=== PATIENT | female | born 1995 | race Caucasian/White ===

== ENCOUNTER 2016-10-28 16:32 | Inpatient (IN) | payer SELFPAY ==
[~2016-10-28] VITALS: Ht 165.1 cm; Wt 51.4 kg
[2016-10-28] MEDS ORDERED: NS IV 1000 ML 1,000 ML IV ONE (16:46)
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
[2016-10-28 16:58] LABS: BASOPHILS % (AUTO) 0 % (0-10); EOSINOPHILS # (AUTO) 0.1 10^3/uL (0.0-0.3); EOSINOPHILS % (AUTO) 1 % (0-10); LYMPHOCYTES # (AUTO) 2.6 X 10^3 (1.0-4.0); LYMPHOCYTES % (AUTO) 26 % (12-44); MEAN CORPUSCULAR HEMOGLOBIN 31 PG (25-34); MEAN CORPUSCULAR HGB CONC 34 G/DL (32-36); MEAN CORPUSCULAR VOLUME 90 FL (80-99); MEAN PLATELET VOLUME 9.5 FL (7.4-10.4); MONOCYTES # (AUTO) 1.1 X 10^3 (0.0-1.0); MONOCYTES % (AUTO) 11 % (0-12); NEUTROPHILS # (AUTO) 6.1 X 10^3 (1.8-7.8); NEUTROPHILS % (AUTO) 62 % (42-75); PLATELET COUNT 332 10^3/uL (130-400); RED BLOOD COUNT 4.33 10^6/uL (4.35-5.85); RED CELL DISTRIBUTION WIDTH 12.3 % (10.0-14.5); WHITE BLOOD COUNT 9.9 10^3/uL (4.3-11.0)
[2016-10-28 17:11] LABS: ALANINE AMINOTRANSFERASE 12 U/L (0-55); ALBUMIN 4.3 GM/DL (3.2-4.5); ALCOHOL < 10 MG/DL (<10); ANION GAP 11 MMOL/L (5-14); ASPARTATE AMINO TRANSFERASE 17 U/L (5-34); BILIRUBIN,TOTAL 0.6 MG/DL (0.1-1.0); BLOOD UREA NITROGEN 9 MG/DL (7-18); BUN/CREATININE RATIO 12; CALCIUM 10.3 MG/DL (8.5-10.1); CARBON DIOXIDE 24 MMOL/L (21-32); CHLORIDE 107 MMOL/L (98-107); CREATININE SERUM 0.78 MG/DL (0.60-1.30); GFR ESTIMATED > 60; GLUCOSE 96 MG/DL (70-105); MAGNESIUM 2.2 MG/DL (1.8-2.4); PHOSPHORUS 3.4 MG/DL (2.3-4.7); POTASSIUM 3.9 MMOL/L (3.6-5.0); SODIUM 142 MMOL/L (135-145); TOTAL PROTEIN 7.7 GM/DL (6.4-8.2)
[2016-10-28 17:18] LABS: TROPONIN I < 0.30 NG/ML (<0.30)
[2016-10-28 17:19] LABS: ACETAMINOPHEN < 10 UG/ML (10-30); VALPROIC ACID < 2.0 UG/ML (50.0-100.0)
[2016-10-28] MEDS ORDERED: diphenhydrAMINE 50 MG/ML INJ (BENADRYL) IVP ONE (17:30)
--- NOTE | 2016-10-28 17:35 | Diagnostic Imaging Report ---
INDICATION: Altered mental status and overdose. EXAM: Single view of the chest is obtained. COMPARISON: No previous study is available for comparison at this time. FINDINGS: Heart size and pulmonary vasculature are within normal limits, and the lungs are clear, bilaterally. IMPRESSION: Unremarkable chest. Dictated by: Dictated on workstation # [id number]
[2016-10-28 17:48] LABS: BILIRUBIN,URINE NEGATIVE (NEGATIVE); KETONES,URINE NEGATIVE (NEGATIVE); LEUKOCYTE ESTERASE ,URINE 2+ (NEGATIVE); NITRITE,URINE NEGATIVE (NEGATIVE); PH,URINE 6 (5-9); PROTEIN,URINE 2+ (NEGATIVE); UROBILINOGEN,URINE NORMAL (NORMAL)
[2016-10-28 17:56] LABS: WBC,URINE 25-50 /HPF
[2016-10-28 17:57] LABS: CALCIUM OXALATE CRYSTALS,UR MODERATE /LPF; SQUAMOUS EPITHELIAL CELL,UR 0-2 /HPF
[2016-10-28] MEDS ORDERED: cefTRIAXone INJECTION 1,000 MG in NS (IVPB) 50 ML IV ONE (18:15)
[2016-10-28 19:00] VITALS: BP 119/93
[2016-10-28] MEDS ORDERED: ONDANSETRON 4 MG/2 ML (SDV) Z0FRAN IV PRN (19:45)
[2016-10-28] MEDS ORDERED: ACETAMINOPHEN 500 MG TAB (TYLENOL) PO PRN (19:45)
[2016-10-28] MEDS ORDERED: CATHETER FLUSH 10 ML SYR IV PRN (19:45)
[2016-10-28] MEDS ORDERED: diphenhydrAMINE 50 MG/ML INJ (BENADRYL) IV PRN (19:45)
[2016-10-28] MEDS ORDERED: IBUPROFEN 800 MG (MOTRIN) TAB PO PRN (19:45)
[2016-10-28 20:00] VITALS: BP 117/65
[2016-10-28 21:00] VITALS: BP 106/68
--- NOTE | 2016-10-28 21:14 | Diagnostic Imaging Report ---
PROCEDURE: CT head, face, and cervical spine without contrast. TECHNIQUE: Multiple contiguous axial images were obtained through the head, neck, and facial bones without the use of intravenous contrast. Sagittal and coronal reformations through the cervical spine and facial bones were also performed. INDICATION: Altered mental status. CT HEAD: The study is limited by motion however the ventricles and sulci are within normal limits for size. The calvarium is intact and the visualized paranasal sinuses are clear. There is no abnormal mass effect or shift of midline structures. IMPRESSION: Study limited by motion without evidence of acute abnormality. Study could be performed at a later time when the patient is more cooperative. CT CERVICAL SPINE: Cervical spine portion of the study is also limited due to motion. There is extensive reversal of cervical lordosis. Vertebral body heights and disc spaces appear to be maintained. There is no evidence of displaced fracture or cervical spinal dislocation. IMPRESSION: Limited examination without CT evidence of acute cervical spinal abnormality. There is reversal of cervical lordosis which could be due to muscle spasm or positioning. Followup study may be of use. MAXILLOFACIAL CT: The examination is significantly limited due to motion however there is no evidence of fracture. A small mucus retention cyst or polyp is present in the right maxillary sinus. Temporomandibular joints are intact. Globes are also intact without evidence of intraorbital hematoma. IMPRESSION: No CT evidence of acute maxillofacial abnormality on limited study. Dictated by: Dictated on workstation # [id number]
[2016-10-28 22:00] VITALS: BP 113/74
[2016-10-28 23:00] VITALS: BP 102/63
[2016-10-29] VITALS (7 sets, daily range): BP systolic 97–141; BP diastolic 43–100
[2016-10-29 04:40] LABS: BASOPHILS % (AUTO) 0 % (0-10); EOSINOPHILS # (AUTO) 0.2 10^3/uL (0.0-0.3); EOSINOPHILS % (AUTO) 3 % (0-10); LYMPHOCYTES # (AUTO) 3.7 X 10^3 (1.0-4.0); LYMPHOCYTES % (AUTO) 38 % (12-44); MEAN CORPUSCULAR HEMOGLOBIN 30 PG (25-34); MEAN CORPUSCULAR HGB CONC 33 G/DL (32-36); MEAN CORPUSCULAR VOLUME 92 FL (80-99); MEAN PLATELET VOLUME 9.9 FL (7.4-10.4); MONOCYTES # (AUTO) 1.1 X 10^3 (0.0-1.0); MONOCYTES % (AUTO) 12 % (0-12); NEUTROPHILS # (AUTO) 4.6 X 10^3 (1.8-7.8); NEUTROPHILS % (AUTO) 48 % (42-75); PLATELET COUNT 309 10^3/uL (130-400); RED BLOOD COUNT 4.16 10^6/uL (4.35-5.85); RED CELL DISTRIBUTION WIDTH 12.6 % (10.0-14.5); WHITE BLOOD COUNT 9.8 10^3/uL (4.3-11.0)
[2016-10-29 05:22] LABS: ANION GAP 10 MMOL/L (5-14); BLOOD UREA NITROGEN 9 MG/DL (7-18); BUN/CREATININE RATIO 13; CALCIUM 8.8 MG/DL (8.5-10.1); CARBON DIOXIDE 20 MMOL/L (21-32); CHLORIDE 111 MMOL/L (98-107); CREATININE SERUM 0.67 MG/DL (0.60-1.30); GFR ESTIMATED > 60; GLUCOSE 85 MG/DL (70-105); POTASSIUM 4.1 MMOL/L (3.6-5.0); SODIUM 141 MMOL/L (135-145)
[2016-10-29] MEDS ORDERED: RISPERDAL (08:51)
[2016-10-29] MEDS ORDERED: DEPAKOTE (08:51)
[2016-10-29] MEDS ORDERED: cefTRIAXone 1 GM/NS 50 ML IVPB IV SCH ×2 (09:00)
--- NOTE | 2016-10-29 10:46 | Short Stay Summary-Hospitalist ---
HPI History of Present Illness: HPI/Chief Complaint Pt not seen prior to her leaving AMA Date Seen 10/29/16 Time Seen by Provider: 00:00 Attending Physician Maria Eugenia Santana DO PCP No,Local Physician Referring Physician Date of Admission Oct 28, 2016 at 18:29 Home Medications & Allergies Home Medications Reviewed patient Home Medication Reconciliation Form Allergies Allergies Coded Allergies No Allergy Information Available (Unverified10/28/16) Altered mental status Past Eomrgxl-Tighhg-Vqhijv Hx Patient Social History Alcohol Use: Denies Use Recreational Drug Use: Yes (methamphetamine and marijuana) Drug of Choice: methamphetamine Smoking Status: Current Everyday Smoker Type Used: Cigarettes Recent Foreign Travel: No Contact w/other who traveled: No Recent Hopitalizations: No Recent Infectious Disease Expo: No Seasonal Allergies Seasonal Allergies: No Surgeries No Respiratory No Cardiovascular No Neurological Yes Seizure Disorder Reproductive System : No Genitourinary No Gastrointestinal No Musculoskeletal No Endocrine History of Endocrine Disorders: No HEENT History of HEENT Disorders: No Cancer No Psychosocial History of Psychiatric Problem: No Integumentary History of Skin or Integumenta: No Blood Transfusions History of Blood Disorders: No Review of Systems Constitutional: see HPI Physical Exam Physical Exam Vital Signs Vital Sign - Last 12Hours 10/28/16 16:47 Temp 99.6 Pulse 115 Resp 18 B/P (MAP) 128/70 Pulse Ox 98 O2 Delivery Room Air Capillary Refill : Less Than 3 Seconds General Appearance: Other (left ama did not see) Results Results/Procedures Lab Laboratory Tests 10/28/16 16:44 10/29/16 03:48 Short Stay Diagnosis Discharge Diagnosis-Short Stay Admission Diagnosis left ama did not see Final Discharge Diagnosis left ama did not see Conclusion Plan left ama did not see MARIA EUGENIA SANTANA DO Oct 29, 2016 10:46
== END 2016-10-29 09:00 | disposition left against medical advice (07) | DRG 922 ==
LOC: ER 16:38 → ICU 18:29
PROVIDERS: ADMIT Internal Medicine; ATTEND Internal Medicine
DX: T74.11XA Adult physical abuse, confirmed, initial encounter (principal); G93.40 Encephalopathy, unspecified; N39.0 Urinary tract infection, site not specified; G25.71 Drug induced akathisia; G40.909 Epilepsy, unspecified, not intractable, without status epilepticus; F15.90 Other stimulant use, unspecified, uncomplicated; F12.90 Cannabis use, unspecified, uncomplicated; Y07.50 Unspecified non-family member, perpetrator of maltreatment and neglect; Y99.8 Other external cause status
CPT/HCPCS: 36415; 70450; 70486; 71010; 72125; 80048; 80053; 80164; 80306; 80320; 80329; 81000; 83735; 84100; 84484; 84703; 85025; 87088; 96361; 96374; 96375